=== PATIENT | female | born 1965 | race Caucasian/White ===

== ENCOUNTER → 2023-08-03 08:10 | Outpatient (REF) | payer BC, SELFPAY | LOC: HWRAD 08:10 | PROVIDERS: ATTENDING PHYSICIAN Obstetrics & Gynecology Gynecology; FAMILY PHYSICIAN Family Medicine | DX: Z12.31 Encounter for screening mammogram for malignant neoplasm of breast (principal); N93.9 Abnormal uterine and vaginal bleeding, unspecified | CPT/HCPCS: 76830; 76856; 77063; 77067 ==

== ENCOUNTER → 2023-08-06 06:35 | Day surgery (SDC) | payer BC, SELFPAY | LOC: GI 06:35 | PROVIDERS: ATTENDING PHYSICIAN Internal Medicine Gastroenterology | DX: Z12.11 Encounter for screening for malignant neoplasm of colon (principal); K57.30 Diverticulosis of large intestine without perforation or abscess without bleeding; K64.0 First degree hemorrhoids; Z80.0 Family history of malignant neoplasm of digestive organs | CPT/HCPCS: G0121 ==

== ENCOUNTER 2023-12-21 04:14 | Emergency (ER) | payer BC, SELFPAY ==
[2023-12-21] VITALS (8 sets, daily range): BP systolic 116–137; BP diastolic 76–80; BMI 21.1
[2023-12-21] MEDS: NSS 1000 IV ×2 (05:07→06:51)
[2023-12-21 05:13] LABS: % Basophils 0.5 % (0-2); % Eosinophils 0.5 % (0-6); % Immature Granulocytes 0.2 % (0-0.5); % Lymphocytes 20.4 % (20.5-51.1); % Monocytes 7.9 % (1.7-9.3); % Neutrophils 70.5 % (42.2-75.2); Absolute Lymphocytes 1.7 10^3/uL (1.2-3.4); Absolute Monocytes 0.6 10^3/uL (0.1-0.6); Absolute Neutrophils 5.7 10^3/uL (1.4-6.5); Hematocrit 36.5 % (37.0-47.0); Hemoglobin 13.1 g/dL (12.0-16.0); Mean Corp Hgb Conc. 35.9 g/dL (33.0-37.0); Mean Corpuscular Hgb 30.4 pg (27.0-31.0); Mean Corpuscular Volume 84.7 fL (81.0-99.0); Mean Platelet Volume 10.5 fL (7.4-10.4); Nucleated Red Blood Cells % 0 %; Platelet Count 281 10^3/uL (130-400); Red Blood Cell Count 4.31 10^6/uL (4.20-5.40); Red Cell Dist. Width 12.2 % (11.5-14.5); White Blood Cell Count 8.1 10^3/uL (4.8-10.8)
[2023-12-21] MEDS: ZOFRAN 4 MG IV ×2 (05:14→09:31)
[2023-12-21 06:07] LABS: HCG, Serum Qualitative Screen Negative
[2023-12-21 06:09] LABS: ALT (SGPT) 53 U/L (0-35); AST (SGOT) 48 U/L (14-36); Albumin 4.6 g/dl (3.5-5.0); Alkaline Phosphatase 63 U/L (38-126); Blood Urea Nitrogen 25 mg/dl (7-17); Carbon Dioxide 27 mmol/L (22-30); Chloride 101 mmol/L (98-107); Estimated Creatinine Clearance 87 ml/min; Glucose 118 mg/dl (70-99); Lipase 52 U/L (23-300); Potassium 3.9 mmol/L (3.5-5.1); Sodium 136 mmol/L (135-145); Total Bilirubin 0.9 mg/dl (0.2-1.3); Total Protein 6.9 g/dl (6.3-8.2); eGFR > 60.00
--- NOTE | 2023-12-21 06:37 | ED.GENMED ---
History of Present Illness
General
Chief Complaint: Abdominal Symptoms
Source: patient
Exam Limitations: none
Time Seen by Provider: 12/21/23 06:26
History of Present Illness
History of Present Illness:
See MDM
Past History
Past History
ED Past Medical History: Other (hyperemesis); Negative Cancer
ED Past Surgical History: Tonsilectomy and Other (The patient has had an umbilical hernia surgery repair, and a past history of eye surgery); Negative Cardiac
Social History
Tobacco: Non-smoker
Alcohol: None
Drug: None
Personal:
Living: with family
Employment: Employed
Family History
Family History: Hypertension
Phy Exam
Physical Exam
Physical Exam:
See MDM
Course
Orders/Labs/Results
Orders:
Orders
12/21/23 04:54
Test Result ONCE
12/21/23 05:00
Complete Blood Count/With Diff Urgent
12/21/23 05:06
0.9% Sodium Chloride 1000 ml [Nss] 1,000 ml IV BOLUS
12/21/23 05:12
Ondansetron Injectable [Zofran] 4 mg .ROUTE .STK-MED ONE
12/21/23 05:13
Ondansetron Injectable [Zofran] 4 mg IV NOW STA
12/21/23 05:41
Comprehensive Metabolic Panel Urgent
Comment: REDRAW
HCG, Serum Qualitative Screen Urgent
Comment: REDRAW
Lipase Urgent
Comment: REDRAW
12/21/23 06:36
0.9% Sodium Chloride 1000 ml [Nss] 1,000 ml IV BOLUS
12/21/23 09:21
Ondansetron Injectable [Zofran] 4 mg IV NOW STA
Abnormal Lab Results
12/21/23 12/21/23
05:00 05:41
Hct 36.5 L %
(37.0-47.0)
MPV 10.5 H fL
(7.4-10.4)
Lymphocytes % 20.4 L %
(20.5-51.1)
BUN 25 H mg/dl
(7-17)
Glucose 118 H mg/dl
(70-99)
AST 48 H U/L
(14-36)
ALT 53 H U/L
(0-35)
12/21/23 05:00
12/21/23 05:41
Vital Signs
Initial and Last Documented VS:
Initial Vital Signs
Temp Pulse Resp BP Pulse Ox
98.2 F 78 18 116/79 98
12/21/23 04:16 12/21/23 04:16 12/21/23 04:16 12/21/23 04:16 12/21/23 04:16
Last Documented Vital Signs
Temp Pulse Resp BP Pulse Ox
97.5 F 78 10 130/78 100
12/21/23 07:37 12/21/23 08:50 12/21/23 08:50 12/21/23 08:29 12/21/23 08:30
MDM/Problems Addressed
Differential Diagnosis Includes:
HPI and MDM Narrative:
58-year-old female presenting for nausea, vomiting and diarrhea. The vomiting occurred yesterday and she had 1 bout of diarrhea today. This is associated with abdominal cramping. On my assessment, patient had just received Zofran and she states
she is feeling much better. She believes she picked up the viral GI bug from a doctor's office. Patient feeling much better after the Zofran. On my exam, she has no significant abdominal tenderness that would require CT. Patient acknowledges
this. Will continue IV fluids and obtain monitor
Physical exam
General: Well appearing and non-toxic
HEENT: protecting airway. Mildly dry mucous membranes
Neck: appears supple
CV: No evidence of cyanosis
Resp: No accessory muscle use
Abd: Non-distended. Soft and nontender
Extremities: No deformities
Neuro: alert
Psych: Normal affect
Skin: Intact
Problems Addressed including Acute and Chronic Conditions affecting care:
1. Viral gastroenteritis
Acuity: acute
Prognosis: stable
Details: White blood cell count normal. Patient afebrile. She denies urinary symptoms. Will continue symptomatic care with fluids and Zofran.
Updates
On reevaluation after fluids, patient feeling better. Will give another dose of Zofran and discussed return precautions
Differential Diagnosis (but not limited to): Viral gastroenteritis, food poisoning, colitis
Testing considered: CT abdomen/pelvis but no significant abdominal tenderness elicited
Drug therapy (if applicable): OTC meds, please see d/c instruction regarding Rx drugs
Amount and/or Complexity of Data Reviewed
Clinical info obtained from: Patient
External data reviewed: N/A
Labs I independently reviewed (but not limited to): Mild LFT elevation
Radiology: N/A
Pulse Ox: not hypoxic
EKG independently reviewed: N/A
Research Soil Scientist: N/A
Critical Care: N/A
Risk of Complication:
Social Determinants of health: Good social support
Discussed with other providers: N/A
Escalation of Care includes Admit/Obs: After being observed in the Emergency Department, pt stable for discharge.
Occasional wrong word or 'sound a like' substitutions may have occurred due to the inherent limitations of voice recognition software. Read the chart carefully and recognize, using context, where substitutions have occurred.
*Critical Care Note
Total Time (30-74mins, 75-104mins- exclusive of procedures): Not Applicable
ED Attending Note
-
Portions of this chart may have been created with voice recognition software.� Occasional wrong word or��sound alike� substitutions may have occurred due to the inherent limitations of voice recognition software.
Discharge Plan
Departure
Patient Disposition: Home (Routine Discharge)
Date of Disposition: 12/21/23
Time of Disposition: 09:23
Patient with high blood pressure during this ER visit?: No
Discharge Problem:
Gastroenteritis
Instructions: Viral gastroenteritis in adults
Prescriptions:
New
ondansetron 4 mg Tablet,Disintegrating
4 mg PO BIDPRN PRN (Reason: nausea/vomiting) Qty: 10 0RF
No Action
ondansetron HCl [Zofran] 4 MG tablet
4 mg PO Q8HPRN PRN (Reason: prn for nausea and vomiting) Qty: 14 0RF
polyethylene glycol 3350 17 GRAMS powder in packet
17 grams PO DAILY Qty: 10 0RF
Referrals:
Humble Gibson MD [Family Provider] -
Activity Restrictions/Additional Instructions:
Please return for any worsening symptoms.
You may return at any time if you have further concerns.
Please follow up with your doctor at the first available appointment, preferably this week.
Thank you for choosing [facility].
Interventions
Interventions:
*Risk Screen - Suicide Last Done: 12/21/23 04:16
*General Assessment Last Done: 12/21/23 04:16
*Neglect/Abuse Screening Last Done: 12/21/23 04:16
ED- Fall Risk Assessment Last Done: 12/21/23 04:16
*ED COVID-19 Vaccine History Last Done: 12/21/23 04:16
ZO-Asizfe-Judupdricj Assessment Last Done: 12/21/23 07:37
Discharge Date and Time
Print Language: CONGOLESE
--- NOTE | 2023-12-21 09:12 | EDRN ---
the pt pressed the call fox and this RN entered the pts room, the pt stated to this RN, 'I just want to speak to the doctor, i still feel queezy and want to know what i do if i have to throw up at home, i mean i really don't want to throw up at
home, and i have kids at home so is this contagious i mean do we even know what this is right now?', this RN notified Dr. Harvey, VS WNL, no s/s of distress, will continue to monitor the pt closely
--- NOTE | 2023-12-21 09:17 | EDRN ---
Dr. Harvey currently at the pts bedside speaking with the pt
== END 2023-12-21 09:34 | disposition home or self-care (01) ==
LOC: EMR 04:14
PROVIDERS: Student in an Organized Health Care Education/Training Program; EMERGENCY PHYSICIAN Student in an Organized Health Care Education/Training Program; FAMILY PHYSICIAN Family Medicine
DX: K52.9 Noninfective gastroenteritis and colitis, unspecified (principal); Z88.6 Allergy status to analgesic agent; Z88.0 Allergy status to penicillin; Z88.8 Allergy status to other drugs, medicaments and biological substances
CPT/HCPCS: 99284; 96374; 96361 ×3; 96376; 80053; 83690; 84703; 85025

== ENCOUNTER → 2024-08-20 13:51 | Outpatient (REF) | payer BC, SELFPAY | LOC: HWWDC 13:51 | PROVIDERS: ATTENDING PHYSICIAN Family Medicine; FAMILY PHYSICIAN Physician Assistant Medical; REFERRING PHYSICIAN Obstetrics & Gynecology Gynecology | DX: Z12.31 Encounter for screening mammogram for malignant neoplasm of breast (principal) | CPT/HCPCS: 77063; 77067 ==

== ENCOUNTER → 2024-09-04 08:30 | Outpatient (REF) | payer BC, SELFPAY | LOC: WDC 08:30 | PROVIDERS: ATTENDING PHYSICIAN Family Medicine | DX: R92.8 Other abnormal and inconclusive findings on diagnostic imaging of breast (principal) | CPT/HCPCS: 76642 ==

== ENCOUNTER → 2024-11-14 12:21 | Outpatient (REF) | payer BC, SELFPAY | LOC: HWRAD 12:21 | PROVIDERS: ATTENDING PHYSICIAN Physician Assistant Medical; FAMILY PHYSICIAN Physician Assistant Medical | DX: M54.50 Low back pain, unspecified (principal) | CPT/HCPCS: 72110 ==

== ENCOUNTER → 2024-12-30 07:48 | Outpatient (REF) | payer BC, SELFPAY | LOC: HWRAD 07:48 | PROVIDERS: ATTENDING PHYSICIAN Obstetrics & Gynecology Gynecology; FAMILY PHYSICIAN Family Medicine | DX: N93.9 Abnormal uterine and vaginal bleeding, unspecified (principal) | CPT/HCPCS: 76830; 76856 ==

== ENCOUNTER → 2025-05-04 12:28 | Outpatient (REF) | payer BC, SELFPAY | LOC: HWRAD 12:28 | PROVIDERS: ATTENDING PHYSICIAN Nurse Practitioner Family; FAMILY PHYSICIAN Physician Assistant Medical | DX: J44.9 Chronic obstructive pulmonary disease, unspecified (principal); J84.9 Interstitial pulmonary disease, unspecified; J47.9 Bronchiectasis, uncomplicated | CPT/HCPCS: 71046 ==

== ENCOUNTER → 2025-05-05 07:20 | Outpatient (REF) | payer BC, SELFPAY | LOC: HWRAD 07:20 | PROVIDERS: ATTENDING PHYSICIAN Nurse Practitioner Family; FAMILY PHYSICIAN Physician Assistant Medical | DX: R93.89 Abnormal findings on diagnostic imaging of other specified body structures (principal) | CPT/HCPCS: 71046 ==